=== PATIENT | male | born 1950 | race Caucasian/White ===

== ENCOUNTER 2018-05-04 17:22 | Inpatient (IN) ==
[2018-05-04] MEDS ORDERED: ENOXAPARIN 100 MG/ML SYRINGE SUBCUT STA (18:22)
[2018-05-04] MEDS ORDERED: NITROGLYCERIN 2% OINT 1 INCH/GM PACK TOP STA (18:22)
[2018-05-04] MEDS ORDERED: ENOXAPARIN 80 MG/0.8 ML SYRINGE SUBCUT ONE (18:38)
[2018-05-04 18:50] LABS: Basophils # 0.1 10*3/uL (0.0-0.2); Basophils % 1.1 % (0.0-0.8); Eosinophils # 0.3 10*3/uL (0.0-0.87); Eosinophils % 6.2 % (0.00-10.9); Hematocrit 43.8 VOL% (42.0-52.0); Hemoglobin 14.9 GM/DL (14.0-18.0); Immature Granulocytes % 0.2 %; Immature Granulocytes Absolute 0.01 #; Lymphocytes # 1.7 10*3/uL (1.4-4.0); Lymphocytes % 37.5 % (21.2-54.2); Mean Corpuscular Hemoglobin 30 PG (27-34); Mean Corpuscular Volume 87.6 FL (87-102); Mean Platelet Volume 9.5 FL (9.6-12.0); Monocytes # 0.7 10*3/uL (0.11-0.8); Monocytes % 14.8 % (1.7-12.7); Neutrophils # 1.8 10*3/uL (1.4-7.4); Neutrophils % 40.2 % (38.7-73.9); Platelet Count 243 T/CUMM (130-400); Red Cell Distribution Width 14.7 % (9.3-17.3); White Blood Count 4.5 T/CUMM (4-12)
[2018-05-04 19:08] LABS: Apearance,Urine CLEAR (Clear); Bilirubin,Urine Negative (Negative); Blood, Urine Negative (Negative); Glucose,Urine (UA) Negative (Negative); Hyaline Casts,Urine 1 /LPF (0-3); Ketones,Urine Negative (Negative); Nitrite,Urine Negative (Negative); Protein,Urine Negative; Urine Color Straw (Yellow); Urine Specific Gravity 1.001 (1.001-1.035); Urine Urobilinogen < 2.0 EU/DL (0.2-1.0); WBC,Urine <1 /HPF (0-6)
[2018-05-04 19:09] LABS: Alanine Aminotransferase 57 U/L (16-61); Albumin 3.6 G/DL (3.4-5.0); Alkaline Phosphatase 54 U/L (45-117); Aspartate Amino Transferase 43 U/L (0-37); Bilirubin,Total < 0.39 MG/DL (0.2-1.0); Blood Urea Nitrogen 4 MG/DL (7-18); Calcium 8.8 MG/DL (8.5-10.1); Glucose 76 MG/DL (74-106); Osmolality,Calculated 272.5 MOS/KG (273-304); Potassium 3.8 MMOL/L (3.5-5.1); Sodium 139 MMOL/L (136-145); Total Protein 7.4 G/DL (6.4-8.3)
[2018-05-04 19:20] LABS: Barbiturates Screen,Urine Negative (Negative); Benzodiazepines Screen,Urine Negative (Negative); Cannabinoid Screen,Urine Negative (Negative); Opiate Screen,Urine Positive (Negative); Phencyclidine Screen,Urine Negative (Negative)
[2018-05-04] MEDS ORDERED: ACETAMINOPHEN 325 MG TABLET PO PRN (19:40)
[2018-05-04] MEDS ORDERED: ZALEPLON 5 MG CAPSULE PO PRN (19:40)
[2018-05-04] MEDS ORDERED: ONDANSETRON 4 MG/2 ML VIAL IV PRN (19:40)
[2018-05-04] MEDS ORDERED: MORPHINE 4 MG/1 ML VIAL IV PRN (21:13)
[2018-05-04] MEDS ORDERED: POTASSIUM CHLORIDE RIDER 10 MEQ in PREMIX 1 EACH IV PRN (21:13)
[2018-05-04 21:26] LABS: Partial Thromboplastin Time 33.5 SECS (0-40)
[2018-05-04] MEDS: DEXTROSE 5% NACL 0.9% 1,000 ML IV SCH (22:53)
[2018-05-05 01:48] LABS: Basophils % 1.2 % (0.0-0.8); Eosinophils # 0.2 10*3/uL (0.0-0.87); Hematocrit 42.3 VOL% (42.0-52.0); Hemoglobin 14.4 GM/DL (14.0-18.0); Immature Granulocytes % 0.3 %; Immature Granulocytes Absolute 0.01 #; Lymphocytes % 29.6 % (21.2-54.2); Mean Corpuscular Hemoglobin 30 PG (27-34); Mean Corpuscular Volume 87.6 FL (87-102); Mean Platelet Volume 9.7 FL (9.6-12.0); Monocytes # 0.5 10*3/uL (0.11-0.8); Monocytes % 14.8 % (1.7-12.7); Neutrophils # 1.6 10*3/uL (1.4-7.4); Neutrophils % 47.1 % (38.7-73.9); Platelet Count 216 T/CUMM (130-400); Red Blood Count 4.83 MC/CUMM (3.8-5.5); Red Cell Distribution Width 14.7 % (9.3-17.3); White Blood Count 3.5 T/CUMM (4-12)
[2018-05-05 02:10] LABS: Blood Urea Nitrogen 5 MG/DL (7-18); Calcium 8.5 MG/DL (8.5-10.1); Cholesterol 130 MG/DL (50-200); Glucose 90 MG/DL (74-106); HDL Cholesterol 52 MG/DL (40-60); Potassium 3.9 MMOL/L (3.5-5.1); Sodium 143 MMOL/L (136-145); Triglycerides 48 MG/DL (2-150); VLDL CHOLESTEROL 9.6 MG/DL
[2018-05-05 02:11] LABS: Troponin I 0.058 NG/ML (0.00-0.045)
[2018-05-05] MEDS: DEXTROSE 5% NACL 0.9% 1,000 ML IV SCH ×2 (06:35→16:20)
[2018-05-05] MEDS ORDERED: ROSUVASTATIN 10 MG TABLET PO ONE (09:00)
[2018-05-05] MEDS: METOPROLOL TARTRATE 25 MG TABLET PO SCH ×2 (10:23→21:56)
[2018-05-05] MEDS: ASPIRIN EC 325 MG TABLET PO SCH (10:24)
[2018-05-05] MEDS: PANTOPRAZOLE 40 MG TABLET PO SCH (10:24)
[2018-05-05] MEDS ORDERED: MAGNESIUM HYDROXIDE SUSP 30 ML UDCUP PO PRN (11:07)
[2018-05-05] MEDS ORDERED: diphenhydrAMINE CAP 25 MG CAPSULE PO PRN (11:07)
[2018-05-05] MEDS: NITROGLYCERIN 2% OINT 1 INCH/GM PACK TOP SCH ×2 (17:48→19:29)
[2018-05-05] MEDS: ROSUVASTATIN 10 MG TABLET PO SCH (21:55)
[2018-05-06] MEDS: DEXTROSE 5% NACL 0.9% 1,000 ML IV SCH (00:20)
[2018-05-06 04:55] LABS: Basophils % 0.9 % (0.0-0.8); Eosinophils # 0.3 10*3/uL (0.0-0.87); Eosinophils % 5.7 % (0.00-10.9); Hematocrit 40.3 VOL% (42.0-52.0); Hemoglobin 13.5 GM/DL (14.0-18.0); Immature Granulocytes % 0.2 %; Immature Granulocytes Absolute 0.01 #; Lymphocytes # 0.8 10*3/uL (1.4-4.0); Lymphocytes % 19.3 % (21.2-54.2); Mean Corpuscular HGB Conc 33.5 GM/DL (32-36); Mean Corpuscular Hemoglobin 30 PG (27-34); Mean Platelet Volume 10.3 FL (9.6-12.0); Monocytes # 0.6 10*3/uL (0.11-0.8); Monocytes % 13.6 % (1.7-12.7); Neutrophils # 2.6 10*3/uL (1.4-7.4); Neutrophils % 60.3 % (38.7-73.9); Platelet Count 187 T/CUMM (130-400); Red Blood Count 4.58 MC/CUMM (3.8-5.5); Red Cell Distribution Width 14.8 % (9.3-17.3); White Blood Count 4.4 T/CUMM (4-12)
[2018-05-06 05:18] LABS: Calcium 8.1 MG/DL (8.5-10.1); Osmolality,Calculated 281.1 MOS/KG (273-304); Potassium 3.5 MMOL/L (3.5-5.1)
[2018-05-06] MEDS: NITROGLYCERIN 2% OINT 1 INCH/GM PACK TOP SCH (05:58)
[2018-05-06] MEDS ORDERED: MAGNESIUM SULF RIDER 2 GM in PREMIX 1 EACH IV PRN (09:39)
[2018-05-06] MEDS ORDERED: POTASSIUM CHLORIDE RIDER 10 MEQ in PREMIX 1 EACH IV PRN (09:39)
[2018-05-06] MEDS ORDERED: DIAZEPAM 5 MG TABLET PO ONE (09:39)
[2018-05-06] MEDS ORDERED: diphenhydrAMINE CAP 25 MG CAPSULE PO ONE (09:39)
[2018-05-06] MEDS ORDERED: LIDOCAINE 1% 20 ML VIAL ONE (09:42)
[2018-05-06] MEDS ORDERED: HEPARIN/NACL 0.9% 2 UNITS/ML 1,000 ML IV ONE (09:42)
[2018-05-06] MEDS ORDERED: DIAZEPAM 5 MG TABLET ONE (09:43)
[2018-05-06] MEDS: ASPIRIN EC 325 MG TABLET PO SCH (09:52)
[2018-05-06] MEDS: METOPROLOL TARTRATE 25 MG TABLET PO SCH (09:52)
[2018-05-06] MEDS: PANTOPRAZOLE 40 MG TABLET PO SCH (09:52)
[2018-05-06 10:00] LABS: Prostate Specific Antigen Diag 0.3 NG/ML (0-4)
[2018-05-06 10:02] LABS: Total Protein 6.2 G/DL (6.4-8.3)
[2018-05-06] MEDS ORDERED: MIDAZOLAM 2 MG/2 ML VIAL ONE (10:05)
[2018-05-06] MEDS ORDERED: fentaNYL 100 MCG/2 ML VIAL ONE (10:05)
[2018-05-06 10:06] LABS: Bilirubin,Direct 0.11 MG/DL (0.0-0.20); Bilirubin,Indirect 0.8 MG/DL (0.0-1.0); Bilirubin,Total 0.9 MG/DL (0.2-1.0); Total Protein 6.2 G/DL (6.4-8.3)
[2018-05-06] MEDS ORDERED: hydrALAZINE 20 MG/1 ML VIAL ONE (10:19)
[2018-05-06] MEDS ORDERED: hydrALAZINE 20 MG/1 ML VIAL IV PRN (10:49)
[2018-05-06] MEDS ORDERED: ACETAMINOPHEN/CODEINE 300-30 MG TABLET PO PRN (10:49)
[2018-05-06] MEDS: amLODIPine 5 MG TABLET PO SCH (11:28)
[2018-05-06] MEDS: SODIUM CHLORIDE 0.9% 1,000 ML IV SCH (11:30)
[2018-05-06 11:40] LABS: Total Protein (Chem) 6.2 G/DL (6.4-8.3)
[2018-05-06 11:41] LABS: Immunoglobulin A (Chem) 277 MG/DL (70-400); Immunoglobulin G (Chem) 1060 MG/DL (700-1600); Immunoglobulin M (Chem) 30 MG/DL (40-230)
[2018-05-06] MEDS: ROSUVASTATIN 10 MG TABLET PO SCH (21:51)
[2018-05-07] MEDS: SODIUM CHLORIDE 0.9% 1,000 ML IV SCH ×2 (00:10→04:11)
[2018-05-07] MEDS: DEXTROSE 5% NACL 0.9% 1,000 ML IV SCH ×2 (04:12→04:13)
[2018-05-07 04:24] LABS: Basophils % 0.7 % (0.0-0.8); Eosinophils # 0.2 10*3/uL (0.0-0.87); Eosinophils % 4.1 % (0.00-10.9); Hematocrit 44.3 VOL% (42.0-52.0); Immature Granulocytes % 0.2 %; Immature Granulocytes Absolute 0.01 #; Lymphocytes # 1.1 10*3/uL (1.4-4.0); Lymphocytes % 20.3 % (21.2-54.2); Mean Corpuscular HGB Conc 33.9 GM/DL (32-36); Mean Corpuscular Hemoglobin 30 PG (27-34); Mean Corpuscular Volume 87.2 FL (87-102); Mean Platelet Volume 10.2 FL (9.6-12.0); Monocytes # 0.7 10*3/uL (0.11-0.8); Monocytes % 12.3 % (1.7-12.7); Neutrophils # 3.4 10*3/uL (1.4-7.4); Neutrophils % 62.4 % (38.7-73.9); Platelet Count 210 T/CUMM (130-400); Red Blood Count 5.08 MC/CUMM (3.8-5.5); Red Cell Distribution Width 14.7 % (9.3-17.3); White Blood Count 5.4 T/CUMM (4-12)
[2018-05-07 04:51] LABS: Calcium 8.9 MG/DL (8.5-10.1); Osmolality,Calculated 275.4 MOS/KG (273-304); Potassium 3.4 MMOL/L (3.5-5.1)
[2018-05-07 04:53] LABS: Calcium 8.8 MG/DL (8.5-10.1); Osmolality,Calculated 275.4 MOS/KG (273-304); Potassium 3.5 MMOL/L (3.5-5.1)
[2018-05-07] MEDS: ENOXAPARIN 40 MG/0.4 ML SYRINGE SUBCUT SCH (04:54)
[2018-05-07] MEDS: NITROGLYCERIN 2% OINT 1 INCH/GM PACK TOP SCH (06:03)
[2018-05-07 07:54] LABS: Hemoglobin A1 (Alkaline) 97.2 % (96.5-98.5); Hemoglobin A2 (Alkaline) 2.8 % (1.5-3.5)
[2018-05-07 07:59] LABS: Albumin (SPE) 3.8 G/DL (3.2-5.3); Albumin (SPE) Rel % 61.3 %; Alpha 1 (SPE) 0.2 G/DL (0.1-0.4); Alpha 2 (SPE) 0.6 G/DL (0.4-1.0); Alpha 2 (SPE) Rel % 10.2 %; Beta (SPE) 0.6 G/DL (0.5-1.1); Beta (SPE) Rel % 9.7 %; Gamma (SPE) Rel % 15.8 %
[2018-05-07] MEDS: PANTOPRAZOLE 40 MG TABLET PO SCH (08:32)
[2018-05-07] MEDS: amLODIPine 5 MG TABLET PO SCH (08:32)
[2018-05-07] MEDS: ASPIRIN EC 325 MG TABLET PO SCH (08:32)
[2018-05-07 08:43] LABS: ABG Base Excess 2.3 MMOL/L (-2.5-2.5); ABG HCO3 26.4 MMOL/L (20-26); ABG Oxygen Saturation 97.7 % (95-100); ABG PCO2 37.2 MM HG (35-48); ABG PH 7.452 (7.35-7.45); ABG PO2 92.2 MM HG (80-95); ABG TCO2 21.7 MMOL/L (23-27)
[2018-05-07 09:48] LABS: Immuno Free Light Chain Kappa 2.43 MG/DL (0.33-1.94); Immuno Free Light Chain Lambda 2.53 MG/DL (0.57-2.63); Immuno Free Light Chain Ratio 0.96 MG/DL (0.26-1.65)
[2018-05-07] MEDS ORDERED: METOPROLOL SUCCINATE XL 100 MG TABLET PO SCH (16:00)
[2018-05-07] MEDS: FLUTICASONE 50 MCG NASAL SPRAY 16 GM BOTTLE BOTH NARES SCH (16:40)
[2018-05-07] MEDS: NEBIVOLOL 10 MG TABLET PO SCH (16:40)
[2018-05-07] MEDS: OXYMETAZOLINE 0.05% NASAL SPRAY 15 ML BOTTLE BOTH NARES SCH ×2 (17:44→21:06)
[2018-05-07] MEDS: GABAPENTIN 100 MG CAPSULE PO SCH (21:06)
[2018-05-07] MEDS: ROSUVASTATIN 10 MG TABLET PO SCH (21:06)
[2018-05-08] MEDS: DEXTROSE 5% NACL 0.9% 1,000 ML IV SCH ×2 (02:21→05:25)
[2018-05-08] MEDS: SODIUM CHLORIDE 0.9% 1,000 ML IV SCH ×2 (02:21→11:03)
[2018-05-08] MEDS: ENOXAPARIN 40 MG/0.4 ML SYRINGE SUBCUT SCH (05:26)
[2018-05-08] MEDS: ASPIRIN EC 325 MG TABLET PO SCH (08:39)
[2018-05-08] MEDS: amLODIPine 5 MG TABLET PO SCH (08:39)
[2018-05-08] MEDS: NEBIVOLOL 10 MG TABLET PO SCH (08:39)
[2018-05-08] MEDS: GABAPENTIN 100 MG CAPSULE PO SCH (08:39)
[2018-05-08] MEDS: OXYMETAZOLINE 0.05% NASAL SPRAY 15 ML BOTTLE BOTH NARES SCH (08:40)
[2018-05-08] MEDS: FLUTICASONE 50 MCG NASAL SPRAY 16 GM BOTTLE BOTH NARES SCH (08:49)
[2018-05-08] MEDS: PANTOPRAZOLE 40 MG TABLET PO SCH (08:49)
[2018-05-08 12:20] VITALS: BP 148/96
== END 2018-05-08 12:45 | disposition home or self-care (01) | DRG 287 ==
LOC: EDBD → EDUNIT# → N.EDINP 17:22 → N.ED 17:22 → N.TELEN 20:04
PROVIDERS: ADMIT Internal Medicine Interventional Cardiology; ATTEND Internal Medicine Cardiovascular Disease
PROC: CLCCHCL (ICD-10-PCS; 2018-05-06 10:15)

== ENCOUNTER 2019-06-29 22:45 | Inpatient (IN) ==
[~2019-06-29 22:45] MED LIST: MIDAZOLAM 2 MG/2 ML VIAL ONE; fentaNYL 100 MCG/2 ML VIAL ONE
[2019-06-29] MEDS ORDERED: ceFAZolin 1,000 MG VIAL ONE (22:59)
[2019-06-29] MEDS ORDERED: LIDOCAINE 1%/EPI INJ 20 ML VIAL ONE (23:04)
[2019-06-29] MEDS ORDERED: HEPARIN/NACL 0.9% 2 UNITS/ML 1,000 ML IV ONE (23:04)
[2019-06-29] MEDS ORDERED: cloNIDine 0.1 MG TABLET PO PRN (23:22)
[2019-06-29] MEDS ORDERED: DEXTROSE 5% NACL 0.45% 1,000 ML IV SCH (23:30)
[2019-06-30] MEDS: PANTOPRAZOLE 40 MG TABLET PO SCH ×2 (00:17→09:51)
[2019-06-30 05:11] LABS: Basophils % 0.8 % (0.0-0.8); Eosinophils # 0.1 10*3/uL (0.0-0.87); Eosinophils % 1.5 % (0.00-10.9); Hematocrit 46.9 VOL% (42.0-52.0); Hemoglobin 15.8 GM/DL (14.0-18.0); Immature Granulocytes % 0.5 %; Immature Granulocytes Absolute 0.02 #; Lymphocytes # 0.7 10*3/uL (1.4-4.0); Lymphocytes % 18.1 % (21.2-54.2); Mean Corpuscular HGB Conc 33.7 GM/DL (32-36); Mean Corpuscular Volume 88.2 FL (87-102); Mean Platelet Volume 9.2 FL (9.6-12.0); Monocytes % 15.8 % (1.7-12.7); Neutrophils % 63.3 % (38.7-73.9); Platelet Count 206 T/CUMM (130-400); Red Blood Count 5.32 MC/CUMM (3.8-5.5); Red Cell Distribution Width 13.2 % (9.3-17.3)
[2019-06-30 05:41] LABS: Calcium 9.2 MG/DL (8.5-10.1); Eosinophils 2 % (0-10); Lymphocytes 13 % (20-55); Osmolality,Calculated 276.4 MOS/KG (273-304); Segmented Neutrophils 71 % (50-85); Total Cells Counted 100
[2019-06-30 05:42] LABS: Platelet Estimate Normal; Polychromasia Few
[2019-06-30] MEDS: FOLIC ACID 1 MG TABLET PO SCH (09:50)
[2019-06-30] MEDS: THIAMINE 100 MG TABLET PO SCH (09:51)
[2019-06-30] MEDS: MULTIVITAMIN (CENTRUM) TABLET PO SCH (09:51)
[2019-06-30] MEDS: METOPROLOL TARTRATE 50 MG TABLET PO SCH ×2 (09:51→20:26)
[2019-06-30] MEDS: POTASSIUM CHLORIDE 20 MEQ TABLET PO PRN ×4 (09:51→16:29)
[2019-06-30] MEDS: ASPIRIN EC 81 MG TABLET PO SCH (09:51)
[2019-06-30 10:42] LABS: Barbiturates Screen,Urine Negative (Negative); Benzodiazepines Screen,Urine Positive (Negative); Cannabinoid Screen,Urine Negative (Negative); Opiate Screen,Urine Negative (Negative); Phencyclidine Screen,Urine Negative (Negative)
[2019-06-30] MEDS: ISOSORBIDE MONONITRATE 30 MG TABLET PO SCH (12:36)
[2019-06-30] MEDS: amLODIPine 5 MG TABLET PO SCH (12:38)
[2019-07-01 04:27] LABS: Basophils % 0.5 % (0.0-0.8); Eosinophils # 0.2 10*3/uL (0.0-0.87); Eosinophils % 2.3 % (0.00-10.9); Hemoglobin 14.4 GM/DL (14.0-18.0); Immature Granulocytes % 0.5 %; Immature Granulocytes Absolute 0.04 #; Lymphocytes # 1.2 10*3/uL (1.4-4.0); Lymphocytes % 16.3 % (21.2-54.2); Mean Corpuscular HGB Conc 32.7 GM/DL (32-36); Mean Corpuscular Volume 89.6 FL (87-102); Mean Platelet Volume 9.3 FL (9.6-12.0); Monocytes % 9.2 % (1.7-12.7); Neutrophils % 71.2 % (38.7-73.9); Platelet Count 212 T/CUMM (130-400); Red Blood Count 4.91 MC/CUMM (3.8-5.5); Red Cell Distribution Width 13.3 % (9.3-17.3); White Blood Count 7.4 T/CUMM (4-12)
[2019-07-01 04:40] LABS: Calcium 9.3 MG/DL (8.5-10.1); Osmolality,Calculated 273.8 MOS/KG (273-304)
[2019-07-01 04:45] LABS: Risk Ratio 1.86; VLDL CHOLESTEROL 13.2 MG/DL
[2019-07-01 08:36] VITALS: BP 137/81
[2019-07-01] MEDS: METOPROLOL TARTRATE 50 MG TABLET PO SCH (09:04)
[2019-07-01] MEDS: THIAMINE 100 MG TABLET PO SCH (09:04)
[2019-07-01] MEDS: ISOSORBIDE MONONITRATE 30 MG TABLET PO SCH (09:04)
[2019-07-01] MEDS: ASPIRIN EC 81 MG TABLET PO SCH (09:04)
[2019-07-01] MEDS: FOLIC ACID 1 MG TABLET PO SCH (09:05)
[2019-07-01] MEDS: amLODIPine 5 MG TABLET PO SCH (09:05)
[2019-07-01] MEDS: PANTOPRAZOLE 40 MG TABLET PO SCH (09:05)
[2019-07-01] MEDS: MULTIVITAMIN (CENTRUM) TABLET PO SCH (09:05)
== END 2019-07-01 12:22 | disposition home or self-care (01) | DRG 287 ==
LOC: N.TELES 23:46
PROVIDERS: ADMIT Internal Medicine Interventional Cardiology; ATTEND Internal Medicine Interventional Cardiology
PROC: CLCCHCL (ICD-10-PCS; 2019-06-29 23:00)